=== PATIENT | male | born 2000 | race Caucasian/White ===

== ENCOUNTER 2024-12-23 01:10 | Emergency (ER) | payer MEDICAID, SELFPAY ==
[2024-12-23 01:16] VITALS: BP 132/76; PULSE 68; O2SAT 98
[2024-12-23 01:20] VITALS: BMI 21.9
[2024-12-23 01:44] VITALS: BP 118/63; PULSE 85; RESP 16; TEMP 36.3; O2SAT 97
[2024-12-23 01:47] LABS: Basophils Percent Auto 0.4 % (0-2); Eosinophils Absolute Auto 0.1 X10*3/uL (0.0-0.4); Eosinophils Percent Auto 0.8 % (0-4); Hematocrit 38.6 % (42.0-52.0); Hemoglobin 13.5 g/dl (14.0-18.0); Imm Gran Abs Auto 0.02 X10*3/uL (0.00-0.03); Imm Gran Pct Auto 0.2 % (0.0-0.4); Lymphocytes Absolute Auto 2.9 X10*3/uL (1.2-4.9); Lymphocytes Percent Auto 30.1 % (20-40); MANUAL DIFF FLAG NO; Mean Corpuscular Hemoglobin 30.8 pg (27.0-33.0); Mean Corpuscular Volume 87.9 fL (80.0-98.0); Mean Platelet Volume 10.2 fL (9.4-12.4); Monocytes Absolute Auto 0.9 X10*3/uL (0.1-1.2); Monocytes Percent Auto 8.9 % (2-11); Neutrophils Absolute Auto 5.7 x10*3/uL (2.0-8.3); Neutrophils Percent Auto 59.6 % (45-73); Platelet Count 215 X10*3/uL (160-400); Red Blood Count 4.39 X10*6/uL (4.60-5.80); Red Cell Distribution Width 12.2 % (11.0-16.0); White Blood Count 9.6 X10*3/uL (4.8-10.8)
[2024-12-23 01:48] LABS: Appearance Urine Clear; Color Urine Dark Yellow; Glucose Urine UA Negative (Negative); Leukocyte Esterase Urine Negative (Negative); Nitrite Urine Negative (Negative); PH 5.5 (5.0-9.0); Specific Gravity - Urine >= 1.030 (1.005-1.025); UMIC TRIGGER UA YES; Urine Blood Negative (Negative); Urine Ketones 40 mg/dL (Negative); Urine Protein 30 (1+) mg/dL (Neg-Trace)
[2024-12-23 02:05] LABS: Alanine Aminotransferase 19 U/L (0-40); Albumin Level 4.6 g/dL (3.5-5.0); Alkaline Phosphatase 51 U/L (39-117); Anion Gap 15 (12-20); Aspartate Amino Transferase 20 U/L (5-37); Bilirubin Total 0.8 mg/dL (0.0-1.0); Blood Urea Nitrogen 14 mg/dL (9-16); Calcium 9.5 mg/dL (8.4-10.2); Carbon Dioxide 23 mmol/L (22-29); Chloride 109 mmol/L (96-108); Creatinine Clr Calc Pharmacy 142.3; Estimated Glomerular Filt Rate > 60; Ethanol 11 mg/dL; Glucose Random 81 mg/dL (60-115); Sodium 143 mmol/L (135-145); Total Protein 7.1 g/dL (6.5-8.0)
[2024-12-23 02:06] LABS: Bacteria Urine None Seen (None Seen); RBC Urine 0-2 /HPF (0-2); WBC Urine 0-5 /HPF (0-5)
[2024-12-23 02:07] LABS: Amphetamine Screen Urine Not Detected (Not Detect); Barbiturates, Urine Not Detected (Not Detect); Benzodiazepines Screen Urine Not Detected (Not Detect); Buprenorphine Scr Not Detected (Not Detect); Cannabinoid Screen Urine Not Detected (Not Detect); Cocaine Screen Urine Not Detected (Not Detect); Fentanyl, urine Not Detected (Not Detect); Methadone Screen, Urine Not Detected (Not Detect); Opiate Screen Urine Not Detected (Not Detect); Oxycodone Screen Urine Not Detected (Not Detect); Phencyclidine Screen Urine Not Detected (Not Detect)
[2024-12-23 02:36] LABS: Acetaminophen LAB < 3 mcg/mL (<30); Salicylate < 5.0 mg/dL (15-30)
--- NOTE | 2024-12-23 03:46 | ED.PSYCH ---
HPI - Psych General Chief Complaint: Psychiatric Symptoms Stated Complaint: Wants to be admitted to [facility], No SI/HI Time Seen by Provider: 12/23/24 03:14 History of Present Illness ED Provider: rosalie HPI Narrative: Poor historian, pt is asking for inpatient behavior health. Does not elaborate. Denies SI/HI or drugs. Related Data Allergies Allergy/AdvReac Type Severity Reaction Status Date / Time No Known Allergies Allergy Verified 12/23/24 01:22 [facility] Social History Social History Alcohol intake: never Smoked in Last 30 Days: No Use of substances other than those prescribed or required for medical reasons: No Advance Directives: No Advance Directives Information Provided: Yes Physical Exam Vital Signs: Vital Signs: Last Vital Signs Temp 0 F L 12/23/24 09:37 Pulse 69 12/23/24 09:37 Resp 18 12/23/24 09:37 BP 108/66 12/23/24 09:37 Pulse Ox 96 12/23/24 09:37 O2 Del Method Room Air 12/23/24 09:37 BMI result Body Mass Index 21.9 Const: Other: GENERAL: Well appearing. No apparent distress. Sleepy but easily arousable Slightly disheveled HEAD/NECK: No visual trauma. EYES: Normal to inspection. No conjunctival erythema. No discharge. ENMT: Hearing grossly normal. External nose normal. RESPIRATORY: Respiratory effort normal. CARDIOVASCULAR: Additional details (Grossly well perfused). SKIN: No jaundice. NEUROLOGICAL: Alert. Moving all extremities x4. Additional details (No gross motor deficits. Normal tone. ). PSYCHIATRIC: Evasive. Does not make eye contact. Speaks clearly. Denies SI. Tells me he was prescribed psychiatric medications a long time ago but he has not taken them for unclear amount of time. He says he has received ?many ?psychiatric diagnoses but will not reveal what these are. He tells me he wants to be admitted to [facility] unit Course Course Course Narrative: 7a Dr. Hernandez: I assumed care of this patient at change of shift this morning. The patient had presented to the emergency room earlier this morning by ambulance with a request to be hospitalized at [facility]. The patient says that he has a history of complex PTSD and wants to work through some mental health issues. He denied suicidality or homicidality. He was kept in the emergency room for evaluation by the care team. Although the patient was hoping to be hospitalized at [facility] he is not interested in being hospitalized at hospitalist outside this area. When he was told that there could be no guarantee that a bed would be available at [facility] and that there would be no guarantee that recommendation would not be made for hospitalization at a different hospital he said he would rather be discharged and follow up with his outpatient resources at [facility]. Additionally he has a court date he wishes to on her today. The patient was discharged. After discharge however his mother called and spoke to a member of the care team. The mother told the member of the care team that the patient was in fact suicidal. At that time the patient had not yet left the hospital premises. The patient was still in the waiting room. The care team clinician and I spoke to the patient again in the waiting room. The patient against says that he is interested in getting help but does not want to get help at any other hospital than [facility] or certainly any other hospital outside this area. He denies suicidality or homicidality. He plans to try to deal with his cord issues today. 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 He says that he wants to go to a storage unit where he has some additional things and then go to the [facility]. He seems future oriented. I did not get the impression that he had any thought disorder. I did not get the impression that the he had any likelihood of wanting to harm himself or anyone else at this point. I therefore felt he could not be held against his will and he was not returned to the emergency room.. Medical Decision Making Medical Decision Making [facility] Narrative: 24-year-old male with bizarre presentation minimal history. Patient likely has underlying mental health diagnoses with probable decompensation. He does not appear injured or toxic or ill acutely. He does not appear to have any acute toxidrome nor does he appear intoxicated with alcohol. Patient needs comprehensive evaluation by care team possibly Psychiatry for admission we have no records on him here which makes this challenging at this time. Medical workup unrevealing Differential Diagnosis Differential Diagnoses: The differential diagnosis associated with the presentation includes Schizophrenia, delirium, social issues or homelessness, depression Lab Data 12/23/24 01:41 12/23/24 01:41 Labs: Lab Results 12/23/24 Range/Units 01:41 WBC 9.6 (4.8-10.8) X10*3/uL RBC 4.39 L (4.60-5.80) X10*6/uL Hgb 13.5 L (14.0-18.0) g/dl Hct 38.6 L (42.0-52.0) % MCV 87.9 (80.0-98.0) fL MCH 30.8 (27.0-33.0) pg MCHC 35.0 (31.0-36.0) g/dl RDW 12.2 (11.0-16.0) % Plt Count 215 (160-400) X10*3/uL MPV 10.2 (9.4-12.4) fL Immature Gran % (Auto) 0.2 (0.0-0.4) % Neut % (Auto) 59.6 (45-73) % Lymph % (Auto) 30.1 (20-40) % [place] % (Auto) 8.9 (2-11) % Eos % (Auto) 0.8 (0-4) % Baso % (Auto) 0.4 (0-2) % Lymph # (Auto) 2.9 (1.2-4.9) X10*3/uL [place] # (Auto) 0.9 (0.1-1.2) X10*3/uL Eos # (Auto) 0.1 (0.0-0.4) X10*3/uL Baso # (Auto) 0.0 (0.0-0.2) X10*3/uL Abs Immat Gran (auto) 0.02 (0.00-0.03) X10*3/uL Absolute Neuts (auto) 5.7 (2.0-8.3) x10*3/uL Absolute Nucleated RBC 0.000 (0.0-0.012) X10*3/uL Nucleated RBC % (auto) 0.0 (0.0-0.2) /100WBC Sodium 143 (135-145) mmol/L Potassium 4.0 (3.3-5.1) mmol/L Chloride 109 H (96-108) mmol/L Carbon Dioxide 23 (22-29) mmol/L Anion Gap 15 (12-20) BUN 14 (9-16) mg/dL Creatinine 0.82 (0.5-1.4) mg/dL Estim Creat Clear Calc 142.3 Estimated GFR > 60 Random Glucose 81 (60-115) mg/dL Calcium 9.5 (8.4-10.2) mg/dL Total Bilirubin 0.8 (0.0-1.0) mg/dL AST 20 (5-37) U/L ALT 19 (0-40) U/L Alkaline Phosphatase 51 (39-117) U/L Total Protein 7.1 (6.5-8.0) g/dL Albumin 4.6 (3.5-5.0) g/dL Urine Color Dark Yellow Urine Appearance Clear Urine pH 5.5 (5.0-9.0) Ur Specific [place] >= 1.030 H (1.005-1.025) Urine Protein 30 (1+) H (Neg-Trace) mg/dL Urine Glucose (UA) Negative (Negative) mg/dL Urine Ketones 40 (Negative) mg/dL Urine Blood Negative (Negative) Urine Nitrite Negative (Negative) Ur Leukocyte Esterase Negative (Negative) Urine RBC 0-2 (0-2) /HPF Urine WBC 0-5 (0-5) /HPF Ur Squamous Epith Cells 3-5 (0-2) /HPF Urine Bacteria None Seen (None Seen) Hyaline Casts 3-5 (0-2) /LPF Salicylates < 5.0 L (15-30) mg/dL Urine Opiates Screen Not Detected (Not Detect) Ur Buprenorphine Scrn Not Detected (Not Detect) ng/mL Ur Oxycodone Screen Not Detected (Not Detect) ng/mL Urine Methadone Screen Not Detected (Not Detect) ng/mL Urine Fentanyl Screen Not Detected (Not Detect) Acetaminophen < 3 (<30) mcg/mL Ur Barbiturates Screen Not Detected (Not Detect) Ur Phencyclidine Scrn Not Detected (Not Detect) Ur Amphetamines Screen Not Detected (Not Detect) U Benzodiazepines Scrn Not Detected (Not Detect) Urine Cocaine Screen Not Detected (Not Detect) U Marijuana (THC) Screen Not Detected (Not Detect) Ethyl Alcohol 11 mg/dL Discharge Plan Discharge Clinical Impression: Post traumatic stress disorder Patient Disposition: Home, Self-Care Additional Instructions: [facility] A referral has also been made to [facility] as an alternative source of outpatient services. Return to the emergency room if you feel significantly worse. Referrals: [facility] [Provider Group] Referral Note: [facility] [Physician, Psychology] Interventions: [place]-Suicide Risk Severity Scale Last Done: 12/23/24 01:24 ED Discharge Assessment Last Done: 12/23/24 09:37 Discharge Date/Time: 12/23/24 09:20 Print Language: Mongolian
[2024-12-23 05:55] VITALS: BP 109/60; PULSE 62; RESP 16; TEMP 36.4; O2SAT 98
--- NOTE | 2024-12-23 08:45 | PC.NURSE ---
care team at bedside speaking with the pt
[2024-12-23 09:10] VITALS: BP 108/66; PULSE 69; RESP 18; TEMP -17.7; TEMP 0; O2SAT 96
--- NOTE | 2024-12-23 09:21 | MHC.CARE ---
Pt does not present as an imminent risk and does not meet the criteria for a higher level of care at this time. Pt will be discharged with a referral to [facility]. ED provider in agreement.
[2024-12-23 09:37] VITALS: BP 108/66; PULSE 69; RESP 18; TEMP -17.7; TEMP 0; O2SAT 96
== END 2024-12-23 09:20 | disposition home or self-care (01) ==
PROVIDERS: Emergency Provider Emergency Medicine
DX: F43.10 Post-traumatic stress disorder, unspecified (principal); Z79.899 Other long term (current) drug therapy; Z51.81 Encounter for therapeutic drug level monitoring
CPT/HCPCS: 36415; 80053; 80143; 80179; 80307; 81001; 81003; 85025; 99284; S9485